=== PATIENT | male | born 2000 | race Caucasian/White ===

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

== ENCOUNTER 2019-03-03 02:19 | Emergency (ER) | payer OTHER ==
[2019-03-03] MEDS ORDERED: Tetan/Diph/Pertus SYR(Tdap)* 0.5 ML SYR(BOOSTRIX) use SYR IM ONE (03:18)
--- NOTE | 2019-03-03 03:49 | ED ---
Laceration/Wound HPI - HPI Summary HPI Summary: Pt is a 18 y/o M presenting to the ED with a chief complaint of a laceration on his L index finger. He states he grabbed onto a fence just [employer], splitting the skin. He reports pain and bleeding. - History of Current Complaint Stated Complaint: FINGER LAC PER MOTHER Time Seen by Provider: 03/03/19 03:17 Hx Obtained From: Patient Mechanism of Injury: Sharp/Blunt Trauma Onset/Duration: Sudden Onset, Lasting Hours, Still Present Aggravating: Movement Alleviating: Nothing Onset Severity: Severe Current Severity: Severe Pain Intensity: 10 Pain Scale Used: 0-10 Numeric Associated Signs & Symptoms: Pain - Allergy/Home Medications Allergies/Adverse Reactions: Allergies Allergy/AdvReac Type Severity Reaction Status Date / Time No Known Allergies Allergy Verified 03/03/19 02:26 PMH/Surg Hx/FS Hx/Imm Hx Previously Healthy: Yes Endocrine/Hematology History: Denies: Hx Diabetes Respiratory History: Reports: Hx Asthma Musculoskeletal History: Denies: Hx Scoliosis Neurological History: Denies: Hx Headaches, Other Neuro Impairments/Disorders - Immunization History Date of Tetanus Vaccine: utd Date of Influenza Vaccine: utd Infectious Disease History: No Infectious Disease History: Denies: Traveled Outside the [place] in Last 30 Days - Family History Known Family History: Negative: Cardiac Disease - Social History Alcohol Use: Rare Hx Substance Use: No Substance Use Type: Reports: None Substance Use Comment - Amount & Last Used: 2 hrs ago, smoked a bowl Hx Tobacco Use: No Smoking Status (MU): Current Every Day Smoker Have You Smoked in the Last Year: No Review of Systems Positive: Myalgia Positive: Other - laceration All Other Systems Reviewed And Are Negative: Yes Physical Exam - Summary Physical Exam Summary: Constitutional: Well-developed, Well-nourished, Alert. (-) Distressed Skin: Warm, Dry, V-shaped laceration that goes completely across the index finger from the DIJ down to the middle of the finger, then back up to the DIJ. There is good capillary refill to the very distal tip of the finger. HENT: Normocephalic; Atraumatic Eyes: Conjunctiva normal Neck: Musculoskeletal ROM normal neck. (-) JVD, (-) Stridor, (-) Tracheal deviation Cardio: Rhythm regular, rate normal, Heart sounds normal; Intact distal pulses; The pedal pulses are 2+ and symmetric. Radial pulses are 2+ and symmetric. Pulmonary/Chest wall: Effort normal. (-) Respiratory distress, (-) Wheezes, (-) Rales Abd: Soft, (-) tenderness, (-) Distension, (-) Guarding, (-) Rebound Musculoskeletal: (-) Edema Neuro: Alert, Oriented x3 Psych: Mood and affect Normal Triage Information Reviewed: Yes Vital Signs On Initial Exam: Initial Vitals Temp Pulse Resp BP Pulse Ox 98.6 F 62 16 144/89 97 03/03/19 02:20 03/03/19 02:20 03/03/19 02:20 03/03/19 02:20 03/03/19 02:20 Vital Signs Reviewed: Yes Procedures - Laceration/Wound Repair 1 Location: upper extremity - L hand - index finger Description: Irregular - V shaped Anesthesia: Local, 1.0%, Lido Betadine Prep?: No Laceration/Wound Explored: clean Closure: Single Layer Debridement: minimal Suture Type: Nylon - 4-0 Number of Sutures: 11 Layer Closure?: Yes Sterile Dressing Applied?: Yes Diagnostics - Vital Signs Vital Signs Temp Pulse Resp BP Pulse Ox 03/03/19 02:20 98.6 F 62 16 144/89 97 - Laboratory Lab Statement: Any lab studies that have been ordered have been reviewed, and results considered in the medical decision making process. Laceration Repair Course/Dx - Course Course Of Treatment: Pt is a 18 y/o M presenting to the ED with a chief complaint of a laceration on his L index finger. He states he grabbed onto a fence just [employer], splitting the skin. He reports pain and bleeding. On exam, the pt has a V-shaped laceration that goes completely across the index finger from the DIJ down to the middle of the finger, then back up to the DIJ. There is good capillary refill to the very distal tip of the finger. Pt's L index finger was stitched with 11 stitches using 4-0 nylon. Post-suture placement, capillary refill is totally intact. Sensation is intact, strength is intact at the proximal, middle, and distal interphalangeal joints. Pt's dx will be finger laceration. - Clinical Impression Provider Diagnoses: Finger laceration Discharge - Sign-Out/Discharge Documenting (check all that apply): Patient Departure Patient Received Moderate/Deep Sedation with Procedure: No - Discharge Plan Condition: Stable Disposition: HOME Prescriptions: Cephalexin CAP* [Keflex CAP*] 500 mg PO QID 5 Days #20 cap Patient Education Materials: Care For Your Stitches (ED), Laceration (ED) Referrals: James Lamas MD [Primary Care Provider] - - Billing Disposition and Condition Condition: STABLE Disposition: Home - Attestation Statements Document Initiated by Scribe: Yes Documenting Scribe: Mallika Kim Provider For Whom Blanca is Documenting (Include Credential): Aquiles Frankel MD. Scribe Attestation: Mallika Barrera, bried for Aquiles Frankel MD. on 03/03/19 at 0627. Scribe Documentation Reviewed: Yes Provider Attestation: The documentation as recorded by the Mallika norman accurately reflects the service I personally performed and the decisions made by me, Aquiles Frankel MD. Status of Scribe Document: Viewed
[2019-03-03] MEDS ORDERED: Cephalexin CAP* 500 MG PO ONE (04:42)
[2019-03-03 04:56] VITALS: BP 131/88
== END 2019-03-03 04:53 | disposition home or self-care (01) ==
LOC: ED 02:19
DX: S61.211A Laceration without foreign body of left index finger without damage to nail, initial encounter (principal); Z23 Encounter for immunization; W26.8XXA Contact with other sharp object(s), not elsewhere classified, initial encounter; F17.210 Nicotine dependence, cigarettes, uncomplicated
CPT/HCPCS: 12001; 90471; 90715; 99282; A9270-GY